=== PATIENT | female | born 1950 | race Caucasian/White ===

== ENCOUNTER 2018-08-11 10:27 | Day surgery (SDC) | payer MEDICARE, BC ==
[~2018-08-11] VITALS: Ht 175.3 cm; Wt 87.7 kg
[2018-08-11 10:48] VITALS: BP 131/74
[2018-08-11] MEDS ORDERED: LIDOCAINE 2%, 20ML ONE (11:00)
== END 2018-08-11 12:59 | disposition home or self-care (01) ==
LOC: CACL 10:27
PROVIDERS: ATTEND Internal Medicine Cardiovascular Disease
DX: Z45.09 Encounter for adjustment and management of other cardiac device (principal); I25.10 Atherosclerotic heart disease of native coronary artery without angina pectoris; I10 Essential (primary) hypertension; E78.00 Pure hypercholesterolemia, unspecified; Z79.82 Long term (current) use of aspirin; Z87.891 Personal history of nicotine dependence
CPT/HCPCS: 33286; C1764; J3490